=== PATIENT | male | born 1980 | race African-American/Black ===

== ENCOUNTER 2017-06-10 13:21 | Emergency (ER) | payer OTHER ==
[2017-06-10 13:25] VITALS: PULSE 62; TEMP 98; BMI 28.5
[2017-06-10 13:26] VITALS: BP 136/71
--- NOTE | 2017-06-10 14:31 | PDOC ---
History of Present Illness - General Chief Complaint: Pain Stated Complaint: CYST/ RT WRIST Time Seen by Provider: 06/10/17 14:11 History Source: Patient Exam Limitations: No Limitations - History of Present Illness Initial Comments: 06/10/17 14:26 36 yr male with history of right wrist surgery 5 yrs ago. Pt c/o pain and a cyst at the site for 3 yrs. 06/10/17 14:29 Past History - Past Medical History Allergies/Adverse Reactions: Allergies Allergy/AdvReac Type Severity Reaction Status Date / Time pineapple AdvReac Hives Verified 06/10/17 13:25 Home Medications: Ambulatory Orders NK [No Known Home Medication] 06/10/17 Other medical history: denies - Surgical History GI Surgery: Yes (GASTRIC SLEEVE) Orthopedic Surgery: Yes (ganglion cyst surgery ) - Psycho/Social/Smoking Cessation Hx Anxiety: No Suicidal Ideation: No Smoking Status: No Smoking History: Never smoked Number of Cigarettes Smoked Daily: 0 Information on smoking cessation initiated: No Hx Alcohol Use: No Drug/Substance Use Hx: No Substance Use Type: None Review of Systems - Review of Systems Able to Perform ROS?: Yes Is the patient limited Romanian proficient: No Constitutional: No: Symptoms Reported HEENTM: No: Symptoms Reported Respiratory: No: Symptoms reported Musculoskeletal: Yes: Symptoms Reported, See HPI *Physical Exam - Vital Signs Last Vital Signs Temp Pulse Resp BP Pulse Ox 98 F 62 18 136/71 99 06/10/17 13:23 06/10/17 13:23 06/10/17 13:23 06/10/17 13:23 06/10/17 13:23 - Physical Exam General Appearance: Yes: Nourished, Appropriately Dressed HEENT: positive: EOMI, ANTONI Musculoskeletal: positive: Normal Inspection Extremity: positive: Normal Capillary Refill, Swelling (right wrist with swelling, soft [id number] to the dorsal side of the wrist at scar line), Other ( FROM nv intact ) Integumentary: positive: Normal Color, Dry, Warm Neurologic: positive: Fully Oriented, Alert, Normal Mood/Affect, Normal Response , Motor Strength 5/5 Medical Decision Making - Medical Decision Making 06/10/17 14:31 cc: 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 will refer to for follow up pt has no fever no chills, has FROM of the right wrist and hand I willl give kylie bandage for compression pt understands the follow up plan of care all questions asked and answered. *DC/Admit/Observation/Transfer Diagnosis at time of Disposition: Ganglion cyst - Discharge Dispostion Disposition: HOME Condition at time of disposition: Fair - Referrals Referrals: Cipriano Jung [Primary Care Provider] - Rosalio Murrell MD [Staff Physician] - - Patient Instructions Additional Instructions: follow with the orthopedic surgeon to have the cyst drained use the compression wrap to help with pain and swelling take motrin if needed for pain
== END 2017-06-10 14:33 | disposition home or self-care (01) ==
LOC: JERFT 13:21
DX: M67.431 Ganglion, right wrist (principal)
CPT/HCPCS: 99281-25

== ENCOUNTER 2018-04-15 06:27 | Emergency (ER) | payer OTHER ==
[2018-04-15 07:10] VITALS: BP 140/74; PULSE 78; TEMP 99.5; BMI 31.5
[2018-04-15] MEDS ORDERED: SODIUM CHLORIDE 1,000 ML IV STA (07:30)
[2018-04-15] MEDS ORDERED: ACETAMINOPHEN 1000 MG/100 ML VIAL (NON FORMULARY) IVPB ONE (07:30)
[2018-04-15] MEDS ORDERED: PROCHLORPERAZINE INJECTION 10 MG/2 ML VIAL IVPB ONE (07:30)
[2018-04-15] MEDS ORDERED: LIDOCAINE VISCOUS 2% ORAL/TOP 20 ML UNIT-DOSE CUP MM ONE (07:50)
--- NOTE | 2018-04-15 07:50 | PDOC ---
History of Present Illness - General Chief Complaint: Headache Stated Complaint: SORE THROAT,HEADACHE,CHILLS Time Seen by Provider: 04/15/18 07:11 - History of Present Illness Initial Comments: 04/15/18 07:51 37 yo M with h/o gastric sleeve who p/w AGUIAR. Patient reports gradual, now severe bitemporal , sharp AGUIAR with retroiorbital radiation x 1 day following episode of non bilious bloody emesis, and acute onset of cough yesterday evening. Now with photphobia and phonphobia. Denies aura, vision changes, neck stiffness, neck pain, tinnitus, hearing loss, or skin change. Pain not relieved with OTC ibuprofen. States that he was unable to sleep yesterday evening, which exacerbated symptoms. AGUIAR more severe than previous AGUIAR's. Last AGUIAR one month ago. Similar in character to previous AGUIAR's. States that he was driving home from work and felt lightheaded. Denies F/C, N/V, CP, SOB, abdominal pain, diarrhea, constipation, urinary complaints, weakness, lightheadedness, sensory changes. PMHx: as noted above. ROS: as noted above SHx: Daily alcohol intake. 1 beer at night. Denies tobacco, or IVDA. Allergies: NKDA Past History - Past Medical History Allergies/Adverse Reactions: Allergies Allergy/AdvReac Type Severity Reaction Status Date / Time pineapple AdvReac Hives Verified 06/10/17 13:25 Home Medications: Ambulatory Orders NK [No Known Home Medication] 06/10/17 COPD: No - Surgical History GI Surgery: Yes (GASTRIC SLEEVE) Orthopedic Surgery: Yes (ganglion cyst surgery ) - Suicide/Smoking/Psychosocial Hx Smoking Status: No Smoking History: Never smoked Have you smoked in the past 12 months: No Number of Cigarettes Smoked Daily: 0 Information on smoking cessation initiated: No Hx Alcohol Use: No Drug/Substance Use Hx: No Substance Use Type: None Review of Systems - Review of Systems Comments:: 04/15/18 08:04 GENERAL/CONSTITUTIONAL:+ N/V. No fever or chills. No weakness. HEAD, EYES, EARS, NOSE AND THROAT: No change in vision. No ear pain or discharge. No sore throat. CARDIOVASCULAR: No chest pain or shortness of breath RESPIRATORY: No cough, wheezing, or hemoptysis. GASTROINTESTINAL: + nausea, and vomiting. No diarrhea or constipation. GENITOURINARY: No dysuria, frequency, or change in urination. MUSCULOSKELETAL: No joint or muscle swelling or pain. No neck or back pain. SKIN: No rash NEUROLOGIC:+ headache. No vertigo, loss of consciousness, or change in strength/ sensation. ENDOCRINE: No increased thirst. No abnormal weight change HEMATOLOGIC/LYMPHATIC: No anemia, easy bleeding, or history of blood clots. ALLERGIC/IMMUNOLOGIC: No hives or skin allergy. *Physical Exam - Vital Signs Last Vital Signs Temp Pulse Resp BP Pulse Ox 99.5 F 78 18 140/74 100 04/15/18 06:58 04/15/18 06:58 04/15/18 06:58 04/15/18 06:58 04/15/18 06:58 - Physical Exam Comments: 04/15/18 08:05 GENERAL: Awake, alert, and fully oriented, in no acute distress HEAD: No signs of trauma, normocephalic, atraumatic EYES: PERRLA, EOMI, sclera anicteric, conjunctiva clear ENT: +Posterior oropharynx erythematous. Auricles normal inspection, hearing grossly normal, nares patent, . Moist mucosa NECK: Normal ROM, supple, no lymphadenopathy, JVD, or masses LUNGS: No distress, speaks full sentences, clear to auscultation bilaterally HEART: Regular rate and rhythm, normal S1 and S2, no murmurs, rubs or gallops, peripheral pulses normal and equal bilaterally. EXTREMITIES : Normal inspection, Normal range of motion, no edema. No clubbing or cyanosis. NEUROLOGICAL: Cranial nerves II through XII grossly intact. Normal speech, normal gait, no focal sensorimotor deficits SKIN: Warm, Dry, normal turgor, no rashes or lesions noted ED Treatment Course - LABORATORY CBC & Chemistry Diagram: 04/15/18 08:15 04/15/18 08:15 Medical Decision Making - Medical Decision Making 04/15/18 08:06 37 yo M with h/o gastric sleeve who p/w AGUIAR, cough, and N/V x 1 day. VSS, AF, A& OX3. R/o PNA. Absent neuro findings on PE. Low suspicion of SAH. Absent nuchal findings. Low suspicion of meningitis. AGUIAR consistent with previous tension type AGUIAR's, but severe in character. Will assess for electrolyte abnml, toxic or metabolic derangements, acid-base disturbances, or underlying infection. ED Course: CBC, CMP, strep UA Compazine, Diphenhydramine, Tylenol, NS, viscous lidocaine CXR 04/15/18 09:15 CBC,CMP: Unremarkable CXR: No acute pathology. 04/15/18 10:22 Pt. AGUIAR improved. Stable for d/c with return precautions. *DC/Admit/Observation/Transfer Diagnosis at time of Disposition: Sore throat Headache Qualifiers: Headache type: tension-type Headache chronicity pattern: acute headache - Referrals Referrals: Cipriano Jung [Primary Care Provider] - - Patient Instructions Printed Discharge Instructions: DI for Viral Pharyngitis Additional Instructions: Please return to the emergency department with any new or worsening symptoms or concerns. Please follow up with your primary care physician within 72 hours. - Post Discharge Activity - Attestations Physician Attestion: 04/15/18 08:12 I attest to the information provided in this note.
[2018-04-15] MEDS ORDERED: LIDOCAINE VISCOUS 2% ORAL/TOP 20 ML UNIT-DOSE CUP ONE (07:59)
[2018-04-15] MEDS ORDERED: ACETAMINOPHEN INJECTION 100 ML IVPB ONE (08:00)
[2018-04-15] MEDS ORDERED: PROCHLORPERAZINE INJECTION 10 MG/2 ML VIAL ONE (08:00)
[2018-04-15 08:25] LABS: BASO % 0.3 % (0-2.0); HEMATOCRIT 46.6 % (35.4-49); HEMOGLOBIN 15.5 GM/dL (11.7-16.9); LYMPH % 7.5 % (8-40); MCH 30.1 pg (25.7-33.7); MCHC 33.1 g/dl (32.0-35.9); MEAN PLT VOLUME 9.8 fl (7.5-11.1); MONO % 10.7 % (3.8-10.2); NEUT % 81.5 % (42.8-82.8); PLATELET COUNT 231 K/MM3 (134-434); RBC 5.13 M/mm3 (4.00-5.60); RDW 12.4 % (11.9-15.9); WHITE BLOOD COUNT 13.5 K/mm3 (4.0-10.0)
[2018-04-15 08:51] LABS: ALBUMIN 4.2 g/dl (3.4-5.0); ALK PHOS 57 U/L (45-117); ANION GAP 8 (8-16); BILIRUBIN,TOTAL 0.8 mg/dL (0.2-1.0); BLOOD UREA NITROGEN 11 mg/dL (7-18); CHLORIDE 105 mmol/L (98-107); CO2 27 mmol/L (21-32); CREATININE 1.2 mg/dL (0.7-1.3); GLUCOSE,RANDOM 101 mg/dL (74-106); POTASSIUM 4.2 mmol/L (3.5-5.1); SGOT/AST 15 U/L (15-37); SGPT/ALT 16 U/L (12-78); SODIUM 140 mmol/L (136-145); TOT PROT 7.8 g/dl (6.4-8.2)
--- NOTE | 2018-04-15 10:03 | PDOC ---
Attending Attestation - Resident Resident Name: Pako Davison - ED Attending Attestation I have performed the following: I have examined & evaluated the patient, The case was reviewed & discussed with the resident, I agree w/resident's findings & plan, Exceptions are as noted - HPI HPI: 04/15/18 10:00 "The patient is a 37 year old male, with a significant past medical history of gastric sleeve, who presents with sore throat and headache for approximately 2 days. The patient reports he first developed a sore throat, and shortly after, yesterday while at work he noted a dry nonproductive cough. He reports nausea and one episode of nonbloody/nonbilious emesis. Patient reports associated bitemporal headache, with radiation into his eyes. He reports difficulty sleeping due to headache. Patient reports his headache is similar to previous headaches. Denies thunderclap, denies neck stiffness, denies worst headache of life. He reports taking Ibuprofen for his symptoms with minimal relief. He denies any fever, chills, dizziness, lightheadedness. He denies any recent travel or sick contacts. " - Physicial Exam PE: 04/15/18 10:01 "GENERAL: Awake, alert, and fully oriented, in no acute distress. HEAD: No signs of trauma EYES: PERRLA, EOMI, sclera anicteric, conjunctiva clear ENT: + mild erythema to posterior OP, Auricles normal inspection, hearing grossly normal, nares patent. Moist mucosa NECK: Nontender, no stepoffs, Normal ROM, supple, no lymphadenopathy, JVD, or masses LUNGS: Breath sounds equal, clear to auscultation bilaterally. No wheezes, and no crackles HEART: Regular rate and rhythm, normal S1 and S2, no murmurs, rubs or gallops ABDOMEN: Soft, nontender, normoactive bowel sounds. No guarding, no rebound. No masses EXTREMITIES: Normal range of motion, no edema. No clubbing or cyanosis. No cords, erythema, or tenderness NEUROLOGICAL: Cranial nerves II through XII intact. 5/5 strength and sensation in all extremities, Normal speech, normal gait, normal cerebellar function SKIN: Warm, Dry, normal turgor, no rashes or lesions noted. " - Medical Decision Making 04/15/18 10:02 37 M with likely viral pharyngitis and associated headache. Pt with no red flags for meningitis or SAH. - Labs - IVF, tylenol Pt reassessed s/p meds. Now feels much better. Headache completely resolved. Labs wnl. Pt is well appearing, with normal vitals. Clinically stable for DC at this time. I discussed the physical exam findings, ancillary test results and final diagnoses with the patient. I answered all of the patient's questions. The patient was satisfied with the care received and felt comfortable with the discharge plan and treatment plan. The patient agrees to follow up with the primary care physician within 24-72 hours. <Timothy Olson - Last Filed: 04/15/18 10:00> - Medical Decision Making 04/15/18 15:15 Documentation prepared by Newton Cisneros, acting as medical technologist blood bank for Timothy Olson MD. <Newton Cisneros - Last Filed: 04/15/18 15:15> ED Treatment Course - LABORATORY CBC & Chemistry Diagram: 04/15/18 08:15 04/15/18 08:15 - ADDITIONAL ORDERS Additional order review: Laboratory Results 04/15/18 08:15 Sodium 140 Potassium 4.2 Chloride 105 Carbon Dioxide 27 Anion Gap 8 BUN 11 Creatinine 1.2 Creat Clearance w eGFR > 60 Random Glucose 101 Calcium 9.0 Total Bilirubin 0.8 AST 15 ALT 16 Alkaline Phosphatase 57 Total Protein 7.8 Albumin 4.2 04/15/18 08:15 Group A Strep Rapid Antigen - Final Throat 04/15/18 08:15 RBC 5.13 MCV 91.0 MCHC 33.1 RDW 12.4 MPV 9.8 Neutrophils % 81.5 Lymphocytes % 7.5 L Monocytes % 10.7 H Eosinophils % 0.0 Basophils % 0.3 - RADIOLOGY Radiograph Interpretation: 04/15/18 15:15 EXAM: CXR INTERPRETED BY: Dr. Jung REVIEWED BY: Dr. Olson IMPRESSION: No acute pathology. - Medications Given in the ED: ED Medications Discontinued Medications Generic Name Dose Route Start Last Admin Trade Name Freq PRN Reason Stop Dose Admin Acetaminophen 1,000 mg 04/15/18 07:30 04/15/18 07:30 Ofirmev Injection - IVPB 04/15/18 07:31 1,000 mg ONCE ONE Administration Diphenhydramine HCl 25 mg 04/15/18 07:30 04/15/18 07:30 Benadryl Injection - IVPUSH 04/15/18 07:31 25 mg ONCE ONE Administration Sodium Chloride 1,000 mls @ 1,000 mls/hr 04/15/18 07:30 04/15/18 08:22 Normal Saline - IV 04/15/18 08:29 1,000 mls/hr ASDIR STA Administration Lidocaine HCl 60 ml 04/15/18 07:50 04/15/18 07:50 Xylocaine 2% Viscous Oral - MM 04/15/18 07:51 60 ml ONCE ONE Administration Prochlorperazine Edisylate 10 mg 04/15/18 07:30 04/15/18 07:30 Compazine Injection - IVPB 04/15/18 07:31 10 mg ONCE ONE Administration <Newton Cisneros - Last Filed: 04/15/18 15:15>
== END 2018-04-15 13:40 | disposition home or self-care (01) ==
LOC: JER 06:27
PROC: 3E033NZ Introduction of Analgesics, Hypnotics, Sedatives into Peripheral Vein, Percutaneous Approach (ICD-10-PCS; principal; 2018-04-15)
PROC: 3E033GC Introduction of Other Therapeutic Substance into Peripheral Vein, Percutaneous Approach (ICD-10-PCS; 2018-04-15)
PROC: 3E0337Z Introduction of Electrolytic and Water Balance Substance into Peripheral Vein, Percutaneous Approach (ICD-10-PCS; 2018-04-15)
DX: J02.9 Acute pharyngitis, unspecified (principal); Z98.84 Bariatric surgery status; R51 Headache
CPT/HCPCS: 36415; 71045-TC-FY; 80053; 85025; 87070; 87430; 99282-25; J0131; J7030

== ENCOUNTER 2018-04-17 09:49 | Emergency (ER) | payer OTHER ==
[2018-04-17 09:58] VITALS: TEMP 98.5; BMI 31.5
[2018-04-17] MEDS ORDERED: LIDOCAINE VISCOUS 2% ORAL/TOP 100 ML BOTTLE MM ONE (10:43)
[2018-04-17] MEDS ORDERED: DEXAMETHASONE LIQUID 0.5 MG/5 ML 240 ML BULK BOTTLE PO ONE (10:43)
[2018-04-17] MEDS ORDERED: LIDOCAINE VISCOUS 2% ORAL/TOP 20 ML UNIT-DOSE CUP ONE (11:05)
[2018-04-17] MEDS ORDERED: DEXAMETHASONE SOD PHOSPHATE 10 MG/1 ML VIAL ONE (11:06)
--- NOTE | 2018-04-17 12:13 | PDOC ---
History of Present Illness - General Chief Complaint: Sore Throat Stated Complaint: REVISIT, SORE THROAT Time Seen by Provider: 04/17/18 10:22 History Source: Patient Exam Limitations: No Limitations - History of Present Illness Initial Comments: 04/17/18 11:04 37-year-old male presents to ED with complaints of continual sore throat which she describes as scratchy harsh abrasive feeling with swallowing and speaking now which he states has lost his voice this morning. Patient denies ability breathing, fever, chills or headache. Patient was seen here and was swabbed for strep which was negative and was told to go home and take Motrin which he states does alleviate his symptoms but only for a few hours. Patient has no other complaints at this time. Timing/Duration: reports: yesterday Severity: reports: mild Associated Symptoms: reports: sore throat Past History - Travel Traveled outside of the country in the last 30 days: No - Past Medical History Allergies/Adverse Reactions: Allergies Allergy/AdvReac Type Severity Reaction Status Date / Time pineapple AdvReac Hives Verified 04/17/18 09:53 Home Medications: Ambulatory Orders Ibuprofen [Motrin -] 600 mg PO TID #21 tablet 04/15/18 Phenol [Throat [place]] 177 ml MM PRN #1 spray 04/15/18 COPD: No Other medical history: DENIES. - Surgical History GI Surgery: Yes (GASTRIC SLEEVE) Orthopedic Surgery: Yes (ganglion cyst surgery ) - Suicide/Smoking/Psychosocial Hx Smoking Status: No Smoking History: Never smoked Have you smoked in the past 12 months: No Number of Cigarettes Smoked Daily: 0 Hx Alcohol Use: No Drug/Substance Use Hx: No Substance Use Type: None Patient Lives Alone: No Lives with/in: spouse/SO Review of Systems - Review of Systems Able to Perform ROS?: No Constitutional: No: Symptoms Reported HEENTM: Yes: Throat Pain, Difficulty Swallowing. No: Throat Swelling, Dental Problems, Mouth Swelling Respiratory: No: Symptoms reported Cardiac (ROS): No: Symptoms Reported ABD/GI: No: Symptoms Reported : No: Symptoms Reported Musculoskeletal: No: Symptoms Reported Integumentary: No: Symptoms Reported Neurological: No: Symptoms reported *Physical Exam - Vital Signs Last Vital Signs Temp Pulse Resp BP Pulse Ox 98.5 F 85 19 150/94 100 04/17/18 09:53 04/17/18 09:53 04/17/18 09:53 04/17/18 09:53 04/17/18 09:53 - Physical Exam General Appearance: Yes: Nourished, Appropriately Dressed. No: Apparent Distress HEENT: positive: EOMI, ANTONI, TMs Normal, Muffled/Hoarse voice (hoarse. speaking clear sentences. No trismus), Pharyngeal Erythema (uvula midline. Tonsils 1+ bilateral) Neck: positive: Supple. negative: Lymphadenopathy (R), Lymphadenopathy (L) Respiratory/Chest: positive: Lungs Clear, Normal Breath Sounds. negative: Respiratory Distress, Accessory Muscle Use Cardiovascular: positive: Regular Rhythm, Regular Rate. negative: Murmur Integumentary: positive: Normal Color, Warm, Moist Neurologic: positive: Motor Strength 5/5 (ambulatory) ED Treatment Course - ADDITIONAL ORDERS Additional order review: 04/17/18 10:49 Group A Strep Rapid Antigen - Final Throat - Medications Given in the ED: ED Medications Discontinued Medications Generic Name Dose Route Start Last Admin Trade Name Martq PRN Reason Stop Dose Admin Dexamethasone 10 mg 04/17/18 10:43 04/17/18 11:12 Decadron Liquid - PO 04/17/18 10:44 10 mg ONCE ONE Administration Lidocaine HCl 10 ml 04/17/18 10:43 04/17/18 11:13 Xylocaine 2% Viscous MM 04/17/18 10:44 10 ml ONCE ONE Administration Medical Decision Making - Medical Decision Making 04/17/18 11:06 Patient will continue complaints of sore throat now with loss of voice. Patient exam appears to have pharyngitis but will be swabbed for strep secondary to pharyngeal erythema involving the posterior pharynx. Patient also ordered for Decadron to help the inflammation along with viscous lidocaine to alleviate discomfort. 04/17/18 12:06 patient states Feeling better Rapid strep negative. Patient will be discharged home with recommendations to use Chloraseptic spray and continue with Motrin eating soft non-abrasive foods *DC/Admit/Observation/Transfer Diagnosis at time of Disposition: Pharyngitis Qualifiers: Pharyngitis/tonsillitis etiology: unspecified etiology Qualified Code(s): J02.9 - Acute pharyngitis, unspecified - Discharge Dispostion Disposition: HOME Condition at time of disposition: Good - Referrals Referrals: Cipriano Jung [Primary Care Provider] - - Patient Instructions Printed Discharge Instructions: DI for Viral Pharyngitis Additional Instructions: At this time I recommend taking Motrin 600 mg every 8 hours. Eat soft nonabrasive foods, and gargle with warm salt water, drink warm fluids, and use Chloraseptic spray as needed for discomfort - Post Discharge Activity
[2018-04-17 12:28] VITALS: BP 145/82; PULSE 70
== END 2018-04-17 12:29 | disposition home or self-care (01) ==
LOC: JER 09:49
DX: J02.9 Acute pharyngitis, unspecified (principal)
CPT/HCPCS: 87070; 87430; 99283-25